=== PATIENT | male | born 1995 | race African-American/Black ===

== ENCOUNTER 2019-11-04 19:52 | Emergency (ER) | payer OTHER, SELFPAY ==
--- NOTE | ~2019-11-04 | XR_ITS ---
EXAMINATION: XR chest 2V DATE: 11/04/2019 20:22 INDICATION: Midsternal chest pain TECHNIQUE: PA and lateral views of the chest are obtained. COMPARISON: None available FINDINGS: The lungs are free of acute opacities. There is no pleural effusion or pneumothorax. The ca rdiomediastinal silhouette is normal. The visualized bones and soft tissues are unremarkable. IMPRESSION: 1. No acute cardiopulmonary abnormality. Reviewed, dictated and finalized at location A.
[2019-11-04 20:00] VITALS: BP 141/51; PULSE 83; RESP 20; TEMP 36.4; O2SAT 100
--- NOTE | 2019-11-04 20:00 | ECG_ITS ---
Measurements Intervals [place] Rate: 62 P: 23 DC: 169 QRS: -1 QRSD: 104 T: 2 QT: 372 QTc: 379 Interpretive Statements SINUS RHYTHM WITH SINUS ARRHYTHMIA VOLTAGE CRITERIA FOR LVH BORDERLINE T WAVE ABNORMALITY- INFERIOR LEADS BASELINE ARTIFACT- I, III, AVL, AVF BORDERLINE ECG Electronically Signed On 11-07-2019 15:24:54 CDT by Bryant Veras D.O.
--- NOTE | 2019-11-04 20:00 | ED.CHESTPAIN ---
HPI - Chest Pain General Chief Complaint: Chest Pain Stated Complaint: cp Time Seen by Provider: 11/04/19 19:54 Source: patient and RN notes reviewed Mode of arrival: ambulatory History of Present Illness HPI narrative: Pt is a 24 y/o male presenting to the ED c/o CP. Pt reports he started experiencing 6/10 substernal CP last night. Pt states the pain is non-radiating and notes it is not worsened when ambulating or taking a deep breath. Pt reports he has never had pain like this previously. Pt also reports mild SOB, but denies rhinorrhea, congestion, fever, or N/V. Pt states he does not have a FMHx of Cardiovascular disease. Pertinent past history: other (None) Onset (ago): unknown (Last night) Pain location: substernal Pain radiation: none Associated symptoms: other (Mild SOB) Related Data Home Medications Medication Instructions Recorded Confirmed No Home Medications 11/04/19 11/04/19 Allergies Allergy/AdvReac Type Severity Reaction Status Date / Time No Known Allergies Allergy Verified 11/04/19 20:03 Review of Systems Review of Systems: All systems reviewed & are unremarkable except as noted in HPI and below Constitutional: Constitutional: Denies fever(s) ENT: Denies nasal congestion and Denies other (Rhinorrhea) Cardiovascular: Cardiovascular: Reports chest pain (Substernal) Respiratory: Respiratory: Reports dyspnea (Mild) Gastrointestinal: Gastrointestinal: Denies nausea and Denies vomiting PMFSH Past Medical History Medical History No significant past medical history Surgical History Surgical History No significant past surgical history Social History Social History Smoking status: Unknown if ever smoked Exam Const: General: healthy appearing, no acute distress and alert Nutritional Appearance: well nourished HENMT: Mouth: Yes lip normal Eyes: Conjunctivae: conjunctivae normal Resp: Effort & Inspection: normal respiratory effort Auscultation: clear to auscultation bilaterally Cardio: Rate: regular rate Rhythm: regular rhythm Back/Spine/Pelvis: Other: Full ROM Skin: General skin exam: normal color Other: Warm; Dry Neuro: General: patient oriented x3 Speech: normal speech Extrem: General: full ROM Psych: Mental Status: mental status grossly normal Affect: normal affect Course Vital Signs Vital signs: Vital Signs Temperature 36.4 C 11/04/19 20:00 Pulse Rate 83 11/04/19 20:00 Respiratory Rate 20 11/04/19 20:00 Blood Pressure 141/51 H 11/04/19 20:00 Pulse Oximetry 100 11/04/19 20:00 Temperature 36.4 C 11/04/19 20:00 Pulse Rate 81 11/04/19 21:25 Respiratory Rate 18 11/04/19 21:25 Blood Pressure 139/69 11/04/19 21:25 Pulse Oximetry 98 11/04/19 21:25 MDM - Chest Pain MDM Narrative Medical decision making narrative: Pain is atypical. Significantly improved with toradol. Medical Records Data Attestation: I reviewed the patient's medical records. Lab Data Attestation: I reviewed the patient's lab results. Result diagrams: 11/04/19 20:17 11/04/19 20:17 Labs: Lab Results 11/04/19 11/04/19 Range/Units 20:17 20:17 WBC 5.9 (4.5-10.0) K/mm3 RBC 4.49 L (4.6-6.20) M/mm3 Hgb 13.2 L (14.0-18.0) g/dL Hct 40.2 L (42.0-52.0) % MCV 89.5 (80-100) fl MCH 29.4 (26-34) pg MCHC 32.8 (32-36) g/dl RDW 13.3 (11.5-14.5) % Plt Count 367 (150-375) k/mm3 MPV 10.0 (7.4-10.4) fl Immature Gran % (Auto) 0.2 (0-0.5) % Neut % (Auto) 53.8 (45.5-73.1) % Lymph % (Auto) 36.1 (18.3-44.2) % [place] % (Auto) 8.1 (2.6-8.5) % Eos % (Auto) 1.5 (0-4.4) % Baso % (Auto) 0.3 (0.2-1.2) % Lymph # (Auto) 2.13 (0.9-3.2) K/mm3 [place] # (Auto) 0.5 (0.1-0.6) K/mm3 Eos # (Auto) 0.1 (0-0.3) K/mm3 Baso # (Auto) 0.0 (0.0-0.1) K/mm3 Abs I
[2019-11-04 20:23] LABS: Basophils Percent Auto 0.3 % (0.2-1.2); Eosinophils Absolute Auto 0.1 K/mm3 (0-0.3); Eosinophils Percent Auto 1.5 % (0-4.4); Hematocrit 40.2 % (42.0-52.0); Hemoglobin 13.2 g/dL (14.0-18.0); Immature Granulocyte Absolute 0.01 K/mm3 (0.00-0.031); Immature Granulocyte Percent A 0.2 % (0-0.5); Lymphocytes Absolute Auto 2.13 K/mm3 (0.9-3.2); Lymphocytes Percent Auto 36.1 % (18.3-44.2); Mean Corpuscular HGB Conc 32.8 g/dl (32-36); Mean Corpuscular Hemoglobin 29.4 pg (26-34); Mean Corpuscular Volume 89.5 fl (80-100); Monocytes Absolute Auto 0.5 K/mm3 (0.1-0.6); Monocytes Percent Auto 8.1 % (2.6-8.5); Neutrophils Absolute Auto 3.2 K/mm3 (1.3-6.7); Neutrophils Percent Auto 53.8 % (45.5-73.1); Platelet Count Result 367 k/mm3 (150-375); Red Blood Count 4.49 M/mm3 (4.6-6.20); Red Cell Distribution Width 13.3 % (11.5-14.5); White Blood Count 5.9 K/mm3 (4.5-10.0)
[2019-11-04] MEDS: KETOROLAC (*BKC) 60 MG/2 ML VIAL IM (20:30)
[2019-11-04 20:40] LABS: Blood Urea Nitrogen 10 mg/dL (9-20); Calcium 9.5 mg/dL (8.4-10.2); Carbon Dioxide 26 mmol/L (22-30); Chloride 105 mmol/L (98-107); Estimated Glomerular Filt Rate > 60; Glucose 108 mg/dL (75-110); Potassium 3.5 mmol/L (3.4-5.0); Sodium 137 mmol/L (137-145)
[2019-11-04 20:52] LABS: Troponin I < 0.012 ng/mL (0.000-0.034)
[2019-11-04 21:25] VITALS: BP 139/69; PULSE 81; RESP 18; O2SAT 98
== END 2019-11-04 21:27 | disposition home or self-care (01) ==
PROVIDERS: Emergency Provider Emergency Medicine
DX: R07.89 Other chest pain (principal)
CPT/HCPCS: 36415; 71046; 80048; 84484; 85025; 93005; 96372; 99284; J1885

== ENCOUNTER 2023-09-21 08:22 | Emergency (ER) | payer OTHER, SELFPAY ==
[2023-09-21 08:27] VITALS: BP 135/90; PULSE 82; RESP 18; TEMP 36.6; O2SAT 98
--- NOTE | 2023-09-21 09:21 | ED.GENADULT ---
HPI - General Adult General Chief complaint: Unspecified Stated complaint: sore throat/?something stuck Time Seen by Provider: 09/21/23 09:06 Source: patient Mode of arrival: ambulatory Limitations: no limitations History of Present Illness HPI narrative: This is a 28-year-old male that presents to the emergency department for cold symptoms present over the last 3 days. Reports sore throat, cough, and congestion. He has been taking ibuprofen and Mucinex with little relief. Reports some difficulty swallowing due to pain. Denies fevers or dyspnea. Related Data Allergies Allergy/AdvReac Type Severity Reaction Status Date / Time No Known Allergies Allergy Verified 09/21/23 08:37 Review of Systems Review of Systems: CONSTITUTIONAL: Denies fever ENT: Reports congestion, sore throat. Denies otalgia. RESPIRATORY: Reports cough. Denies dyspnea. All systems reviewed & are unremarkable except as noted in HPI and below PMFSH Past Medical History Medical History (Updated 09/21/23 @ 09:56 by Bridgett Ibarra PA-C) No significant past medical history Surgical History Surgical History No significant past surgical history Social History Social History (Updated 09/21/23 @ 10:03 by Bridgett Ibarra PA-C) Substance use: never Exam Narrative: GENERAL: Well-appearing, well-nourished, and in no acute distress. HEAD: Normocephalic, atraumatic. EYES: EOMI. ENT: Nares clear, no rhinorrhea or epistaxis. Mucous membranes moist. Oropharynx with symmetric tonsillar hypertrophy and mild redness, no exudate or other lesions. No trismus NECK: Supple. No masses. Tender anterior cervical adenopathy CHEST: Clear to auscultation. No respiratory distress. No wheezes rales or rhonchi HEART: Regular rate and rhythm. No murmur heard. Normal peripheral pulses. EXTREMITIES: Normal range of motion. No edema. SKIN: Warm, dry, no rash. NEURO: No focal deficits. Alert and oriented x3. PSYCH: Normal mood and affect Course Course Emergency Course: patient updated on his workup and agrees with plan of care Vital Signs Vital signs: Vital Signs Temperature 97.9 F 09/21/23 08:27 Pulse Rate 82 09/21/23 08:27 Respiratory Rate 18 09/21/23 08:27 Blood Pressure 135/90 09/21/23 08:27 Pulse Oximetry 98 09/21/23 08:27 Oxygen Delivery Room Air 09/21/23 08:27 Temperature 97.9 F 09/21/23 08:27 Pulse Rate 82 09/21/23 08:27 Respiratory Rate 18 09/21/23 08:27 Blood Pressure 135/90 09/21/23 08:27 Pulse Oximetry 98 09/21/23 08:27 Oxygen Delivery Room Air 09/21/23 08:27 Medical Decision Making MDM Narrative Medical decision making narrative: Patient presents to the emergency department for sore throat ongoing over the last couple of days. He is afebrile and nontoxic appearing. His lungs are clear on exam. No trismus or evidence for peritonsillar abscess. He is strep positive. Influenza, COVID, and RSV screens are negative. Will be treated with oral penicillin. He is to follow up with primary provider. He was given warnings to return to the ER Differential Diagnosis Differential Diagnosis: strep pharyngitis, COVID-19, influenza, viral pharyngitis Vital Signs Vital Signs: Vital Signs Temperature 97.9 F 09/21/23 08:27 Pulse Rate 82 09/21/23 08:27 Respiratory Rate 18 09/21/23 08:27 Blood Pressure 135/90 09/21/23 08:27 Pulse Oximetry 98 09/21/23 08:27 Oxygen Delivery Room Air 09/21/23 08:27 Temperature 97.9 F 09/21/23 08:27 Pulse Rate 82 09/21/23 08:27 Respiratory Rate 18 09/21/23 08:27 Blood Pressure 135/90 09/21/23 08:27 Pulse Oximetry 98 09/21/23 08:27 Oxygen Delivery Room Air 09/21/23 08:27 Lab Data Lab results reviewed: Yes I reviewed the patient's lab results. Labs: Lab Results 09/21/23 Range/Units 09:13 Influenza A (RT-PCR) Negative (Negative) Influenza B (RT-PCR) Negativ
[2023-09-21] MEDS: KETOROLAC 30 MG/ML VIAL (*BKC) IM (09:33)
[2023-09-21 09:41] LABS: Strep Group A RT-PCR DETECTED (Negative)
[2023-09-21 09:57] LABS: Influenza A QL RT-PCR Negative (Negative); Influenza B QL RT-PCR Negative (Negative); RSV RNA, RT-PCR Negative (Negative); SARS-CoV-2 RNA PCR Negative (Negative)
== END 2023-09-21 10:09 | disposition home or self-care (01) ==
PROVIDERS: Emergency Provider Physician Assistant
DX: J02.0 Streptococcal pharyngitis (principal); Z20.822 Contact with and (suspected) exposure to COVID-19
CPT/HCPCS: 87637; 87651; 96372; 99284; J1100; J1885

== ENCOUNTER 2024-12-28 13:12 | Emergency (ER) | payer OTHER, SELFPAY ==
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
--- OUTSIDE RECORDS SUMMARY | 2024-12-28 13:23 | XMS_ITS | Referral Summary ---
Author Organization [address] Address [address] [place] [id number] Care Team Providers Care Medicare Contact Specialist Name Role Phone Marquez Peña MD Primary Care Provider [phone] Unknown, Notinfile Unavailable Unavailable Allergies No known active allergies Medications No known medications Active Problems No known active problems Social History Tobacco Use Types Packs/Day Years Used Date Smoking Tobacco: Never Smokeless Tobacco: Never AUDIT-C Answer Date Recorded Q1: How often do you have a drink containing alc ohol? 2-4 times a month 01/30/2021 Q2: How many drinks containi ng alcohol do you have on a typical day when you are drinking? 5 or 6 01/30/2021 Q3: How often do you have si x or more drinks on one occasion? 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 Gender Identity Male 05/27/2021 12:52 AM CDT Sexual Orientation Straight 05/27/2021 12 :52 AM CDT Last Filed Vital Signs Vital Sign Reading Time Taken Comments Blood Pressure 120/80 01/30/2021 12:22 PM CDT Pulse 76 01/30/2021 12:22 PM CDT Temperature 36.4 C (97.5 F) 01/30/2021 12:22 PM CDT Respiratory Rate 18 01/30/2021 12:22 PM CDT Oxygen Saturation 98% 01/30/2021 12:22 PM CDT Inhaled Oxygen Concentration - - Weight 94.3 kg (208 lb) 01/30/2021 12:22 PM CDT Height 168.9 cm (5' 6.5 ) 01/30/2021 12:22 PM CD T Body Mass Index 33.07 01/30/2021 12:22 PM CDT Plan of Treatment Not on file Insurance [facility] [employer] Address: [address] [place] [address] [facility] [employer] Address: [id number] [place] [address] Care Teams Medicare Contact Specialist Relationship Specialty Start Date End Date Marquez Peña MD PCP - General Family Medicine 01/09/21 Unknown, Notinfile 01/09/21
--- OUTSIDE RECORDS SUMMARY | 2024-12-28 13:24 | XMS_ITS | Clinical Summary ---
Author Organization [address] Address [address] [place] [id number] Care Team Providers Care Mold Bunch Trimmer Name Role Phone Marquez Peña MD Primary Care Provider [phone] Unknown, Notinfile Unavailable Unavailable Allergies No known active allergies Medications No known medications Active Problems No known active problems Family History Medical History Relation Name Comments No Known Problems Father No Known Problems Maternal Grandfather No Known Problems Maternal Grandmother No Known Problems Mother No Known Problems Paternal Grandfather No Known Problems Paternal Grandmother Relation Name Status Comments Father Alive Maternal Grandfather Maternal Grandmother Mother Alive Paternal Grandfather Paternal Grandmother Social History Tobacco Use Types Packs/Day Years [...] on file 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 Gender Identity Male 05/27/2021 12:52 AM CDT Sexual Orientation Straight 05/27/2021 12 :52 AM CDT Obstetrics History Last Filed Vital Signs Vital Sign Reading [...] 01/30/2021 12:22 PM CDT Plan of Treatment Health Maintenance Due Date Last Done Comments Hepatitis C Screening 1993 Hepatitis B Screening 2011 DTaP/Tdap/Td Vaccine (3 - Td or Tdap) 01/04/2017 01/04/2007, 03/06/1998 Depression Screening 01/30/2022 01/30/2021 Regular Well Visit/Exam 18-64 01/30/2022 01/30/2021 Influenza Vaccine (#1) 2024 0, 05/08/2009, 06/08/2007, Additional history exists Varicella Vaccines Discontinued 01/04/2007 HPV Vaccines Aged Out No longer eligi ble based on patient's age to complete this topic Pneumococcal vaccine <65 Aged Out No longer eligible based on patient's age to complete this topic Insurance [employer] [facility] [employer] Address: [address] [place] [address] [facility] [employer] Address: [address] [place] [address] [employer] Care Teams Mold Bunch Trimmer Relationship Specialty Start Date End Date Marquez Peña MD PCP - General Family Medicine 01/09/21 Unknown, Notinfile 01/09/21
[2024-12-28 13:49] VITALS: BP 137/76; PULSE 70; RESP 16; TEMP 36.4; O2SAT 100
--- NOTE | 2024-12-28 14:07 | ECG_ITS ---
Test Date: 2024-12-28 14:32:43 Measurements Intervals [place] Rate: 61 P: 28 [place]: 182 QRS: -6 QRSD: 94 T: 9 QT: 366 QTc: 369 Interpretive Statements SINUS RHYTHM NORMAL ECG No previous ECG available for comparison Electronically Signed On 12-29-2024 08:00:00 CDT by Humberto Silva M.D.
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
[2024-12-28 17:08] LABS: Basophils Percent Auto 0.3 % (0.2-1.2); Eosinophils Absolute Auto 0.1 K/mm3 (0-0.3); Eosinophils Percent Auto 1.8 % (0-4.4); Hematocrit 44.8 % (42.0-52.0); Hemoglobin 14.4 g/dL (14.0-18.0); Immature Granulocyte Absolute 0.01 K/mm3 (0.00-0.031); Immature Granulocyte Percent A 0.2 % (0-0.5); Lymphocytes Absolute Auto 1.55 K/mm3 (0.9-3.2); Lymphocytes Percent Auto 23.6 % (18.3-44.2); Mean Corpuscular HGB Conc 32.1 g/dl (32-36); Mean Corpuscular Hemoglobin 29.2 pg (26-34); Mean Corpuscular Volume 90.9 fl (80-100); Mean Platelet Volume 9.5 fl (7.4-10.4); Monocytes Absolute Auto 0.4 K/mm3 (0.1-0.6); Monocytes Percent Auto 6.2 % (2.6-8.5); Neutrophils Absolute Auto 4.5 K/mm3 (1.3-6.7); Neutrophils Percent Auto 67.9 % (45.5-73.1); Platelet Count Result 347 k/mm3 (150-375); Red Blood Count 4.93 M/mm3 (4.6-6.20); Red Cell Distribution Width 12.9 % (11.5-14.5); White Blood Count 6.6 K/mm3 (4.5-10.0)
[2024-12-28 17:18] LABS: Alanine Aminotransferase 56 U/L (6-50); Alkaline Phosphatase 85 U/L (38-126); Anion Gap 11 mmol/L (4-12); Aspartate Amino Transferase 43 U/L (17-59); Bilirubin,Total 1.2 mg/dL (0.2-1.3); Blood Urea Nitrogen 8 mg/dL (9-20); Calcium 9.5 mg/dL (8.4-10.2); Carbon Dioxide 25 mmol/L (22-30); Chloride 103 mmol/L (98-107); Estimated CRCL calculation 108 ml/min; Estimated Glomerular Filt Rate > 60; Glucose 95 mg/dL (65-110); Potassium 3.9 mmol/L (3.4-5.0); Sodium 139 mmol/L (137-145)
[2024-12-28] MEDS: KETOROLAC 30 MG/ML VIAL (*BKC) IV PUSH (17:23)
--- OUTSIDE RECORDS SUMMARY | 2024-12-28 18:12 | XMS_ITS | Clinical Summary ---
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
--- OUTSIDE RECORDS SUMMARY | 2024-12-28 18:12 | XMS_ITS | Referral Summary ---
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
[2024-12-28 19:51] VITALS: BP 123/78; PULSE 74; RESP 18; O2SAT 100
[2024-12-28 22:00] VITALS: BP 131/76; PULSE 60; RESP 16; TEMP 36.6; O2SAT 98
== END 2024-12-28 22:00 | disposition home or self-care (01) ==
PROVIDERS: Nurse Practitioner Family; Emergency Provider Emergency Medicine
DX: S16.1XXA Strain of muscle, fascia and tendon at neck level, initial encounter (principal); V89.2XXA Person injured in unspecified motor-vehicle accident, traffic, initial encounter
CPT/HCPCS: 36415; 71260; 72125; 74177; 80053; 85025; 93005; 96374; 99284; J1885; Q9967

== ENCOUNTER 2024-12-31 11:50 | Emergency (ER) | payer OTHER, SELFPAY ==
[2024-12-31 11:58] VITALS: BP 135/80; PULSE 94; RESP 20; TEMP 36.7; O2SAT 100
--- NOTE | 2024-12-31 12:13 | ED_ITS ---
HPI - General Adult General Chief complaint: Urogenital-Male Stated complaint: STD Testing Source: patient Mode of arrival: ambulatory Limitations: no limitations History of Present Illness HPI narrative: Patient is a 29 year old male who presents to the clinic wanting to have STD screening. He denies having any exposure. He states that he is just wanting routine screening done. Related Data Allergies Allergy/AdvReac Type Severity Reaction Status Date / Time No Known Allergies Allergy Verified 12/31/24 12:06 Review of Systems Review of Systems: CONSTITUTIONAL: Denies body aches, fever, chills, or sweats. EYES: Denies visual changes, redness, or discharge. ENT: Denies rhinorrhea, congestion, sore throat, or otalgia. CARDIOVASCULAR: Denies chest pain, palpitations, or edema. RESPIRATORY: Denies cough or dyspnea. GASTROINTESTINAL: Denies abdominal pain, nausea, vomiting, or diarrhea. GENITOURINARY: Denies dysuria or hematuria. Reports concern for STD. SKIN: Denies rash, itching, or wounds. MUSCULOSKELETAL: Denies back pain, joint pain, or myalgia. NEUROLOGIC: Denies headache, numbness, tingling, or weakness. PSYCH: Denies depression or anxiety. All systems reviewed & are unremarkable except as noted in HPI and below PMFSH Past Medical History Medical History (Updated 12/31/24 @ 12:16 by Sheryl Florez APRN) No significant past medical history Surgical History Surgical History No significant past surgical history Social History Social History (Updated 09/21/23 @ 10:03 by Bridgett Ibarra PA-C) Substance use: never Comments At time of signature, I have reviewed and agree with nursing past medical, surgical, social and family history unless otherwise noted. Please see nursing chart for further information. There is no relevant family history pertinent to the presenting complaint. Exam Narrative: GENERAL: Well-appearing, well-nourished, and in no acute distress. HEAD: Normocephalic, atraumatic. EYES: EOMI. No redness or drainage. Conjunctivae normal. NECK: Normal AROM. Supple. No lymphadenopathy. CHEST: No respiratory distress. Clear to auscultation. HEART: Regular rate and rhythm. No murmur appreciated. Normal peripheral pulses. MUSCULOSKELETAL: No bony tenderness. EXTREMITIES: Normal range of motion. No edema. : Patient deferred exam. SKIN: Warm, dry, no rash. Capillary refill normal. Normal skin turgor. NEURO: No focal deficits. Alert and oriented x3. Gait steady. PSYCH: Normal affect. No signs of depression or anxiety. Course Course Level of Care: Express Care Visit Vital Signs Vital signs: Vital Signs Temperature 98.0 F 12/31/24 11:58 Pulse Rate 94 12/31/24 11:58 Respiratory Rate 12/31/24 11:58 Blood Pressure 135/80 12/31/24 11:58 Pulse Oximetry 100 12/31/24 11:58 Oxygen Delivery Room Air 12/31/24 11:58 Temperature 98.0 F 12/31/24 11:58 Pulse Rate 94 12/31/24 11:58 Respiratory Rate 12/31/24 11:58 Blood Pressure 135/80 12/31/24 11:58 Pulse Oximetry 100 12/31/24 11:58 Oxygen Delivery Room Air 12/31/24 11:58 Reviewed. Medical Decision Making MDM Narrative Medical decision making narrative: Discussed physical exam findings. Advised supportive measures and signs/symptoms to go to the ER. Pt is appropriate for outpatient treatment and follow up. Differential Diagnosis Differential Diagnosis: STD screening. Vital Signs Vital Signs: Vital Signs Temperature 98.0 F 12/31/24 11:58 Pulse Rate 94 12/31/24 11:58 Respiratory Rate 12/31/24 11:58 Blood Pressure 135/80 12/31/24 11:58 Pulse Oximetry 100 12/31/24 11:58 Oxygen Delivery Room Air 12/31/24 11:58 Temperature 98.0 F 12/31/24 11:58 Pulse Rate 94 12/31/24 11:58 Respiratory Rate 12/31/24 11:58 Blood Pressure 135/80 12/31/24 11:58 Pulse Oximetry 100 12/31/24 11:58 Oxygen Delivery Room Air 12/31/24 11:58 Critical Care Time Critical Care Time Critical Care Time: No Discharge Plan Discharge Clinical Impression: Concern about STD in male without diagnosis Patient Disposition: Home Condition: Stable Instructions: Sexually Transmitted Diseases (ED) Additional Instructions: Your urine sample has been sent off to test for gonorrhea, chlamydia, and trichomonas infections. You will be called if any of your tests come back positive. These tests can take up to 5-7 days to come back. If you are positive, you will be treated at that time. If you are positive, you will need to notify any partners that you have so they can be tested and treated. To avoid reinfection, you are advised to abstain from sexual intercourse for 7 days (and any symptoms have resolved) to prevent transmission. If your tests come back negative and you are still experiencing symptoms, please follow-up with your PCP or Obgyn for further evaluation and treatment. If your symptoms worsen to include fever, abdominal pain, or back pain, please go to the hospital immediately. Patient Language: Taiwanese Prescriptions: No Action naproxen 375 mg tablet 375 mg PO BID Qty: 14 0RF tizanidine 2 mg capsule 2 mg PO Q8H PRN (Reason: muscle spasticity) Qty: 14 0RF Follow-up/Referrals: UNKNOWN,DOCTOR [Primary Care Provider] - Time of Disposition: 12:16
[2024-12-31 21:20] LABS: Trichomonas Vag PCR NOT DETECTED (NOT DETECTE)
[2024-12-31 21:45] LABS: Chlamydia trachomatis NOT DETECTED (NOT DETECTE); Neisseria gonorrhoeae PCR NOT DETECTED (NOT DETECTE)
== END 2024-12-31 12:20 | disposition home or self-care (01) ==
PROVIDERS: Nurse Practitioner
DX: Z11.3 Encounter for screening for infections with a predominantly sexual mode of transmission (principal)
CPT/HCPCS: 87491; 87591; 87661; 99213; G0463